=== PATIENT | female | born 1945 | race Caucasian/White ===

== ENCOUNTER → 2017-02-23 | Outpatient (CLI) | payer OTHER | LOC: BMCIMAGING 16:25 | PROVIDERS: ATTEND Internal Medicine | DX: R50.9 Fever, unspecified (principal); R53.81 Other malaise; Z96.659 Presence of unspecified artificial knee joint ==

== ENCOUNTER 2018-05-30 11:24 | Emergency (ER) | payer OTHER ==
[2018-05-30 11:47] VITALS: BP 158/80
--- NOTE | 2018-05-30 12:30 | EDPHY ---
H & P Time Seen by Provider: 05/30/18 11:47 HPI/ROS: CHIEF COMPLAINT: Right ankle pain HISTORY OF PRESENT ILLNESS: Patient states she was trying to put on a pair of boots yesterday at home. She was standing up and trying to put her foot in to the boot when the heel of the boot rolled causing her to fall. She felt pain to the right ankle but denies other injuries. She did continue to go about her day and was able to walk on the ankle yesterday. She presents today with swelling and pain to the ankle. States able to but difficult to walk on it. No other injuries. REVIEW OF SYSTEMS: Negative except per HPI. General Appearance: Alert, no distress. Eyes: Pupils equal and round no icterus Respiratory: No respiratory distress Neurological: Awake, alert, no focal deficits. Skin: Warm and dry, no rashes. Musculoskeletal: Neck is supple nontender. Extremities are symmetrical, right ankle with swelling and tenderness to the lateral malleolus. Distal intact. No edema. Psychiatric: Patient is oriented X 3, there is no agitation. Medical/surgical history: Hypertension, insulin-dependent diabetes. Social history: Nonsmoker. Constitutional: Initial Vital Signs Temperature (C) 36.7 C 05/30/18 11:43 Heart Rate 63 05/30/18 11:43 Respiratory Rate 16 05/30/18 11:43 Blood Pressure 158/80 H 05/30/18 11:43 O2 Sat (%) 97 05/30/18 11:43 O2 Delivery Mode Room Air Allergies/Adverse Reactions: No Known Allergies Allergy (Verified 05/30/18 11:56) Home Medications: Medication Instructions Recorded FLUoxetine [Prozac] 40 mg PO DAILY 07/21/13 Losartan/Hydrochlorothiazide 1 each PO DAILY 07/21/13 [Hyzaar 100-25 Tablet] Metoprolol Tartrate [Lopressor 25 25 mg PO DAILY 07/21/13 mg (RX)] Omeprazole [Prilosec 20 mg] 20 mg PO DAILY 07/21/13 Insulin Glargine,Hum.rec.anlog 05/30/18 [Edna Harper] Medical Decision Making - Diagnostics Imaging Results: Imaging Impressions Ankle X-Ray 05/30/18 11:48 Impression: Ankle sprain. No fracture. Imaging: I viewed and interpreted images myself Differential Diagnosis: Patient with ankle sprain sustained today born. No evidence of fracture, dislocation, other injury. Placed in a a splint with Elías wrap. Discussed normal healing time and methods to reduce pain and swelling at home. Reviewed follow-up timing and return precautions. Stable for discharge. Departure - Departure Disposition: Home, Routine, Self-Care Clinical Impression: Ankle sprain Qualifiers: Encounter type: initial encounter Involved ligament of ankle: unspecified ligament Laterality: right Qualified Code(s): S93.401A - Sprain of unspecified ligament of right ankle, initial encounter Condition: Good Instructions: Ankle Sprain (ED), Ankle Stirrup Splint (ED) Additional Instructions: Rest, ice, compression with Elías wrap and splint, elevation as much as you can over the next 3-4 days. Try to regain normal range of motion as soon as you are able. Follow up with her primary care or orthopedist in several weeks if improvement is not occurring. Use ibuprofen or Tylenol for pain as discussed. Referrals: Sharda Rene MD [Primary Care Provider] - As per Instructions Jason Ibarra MD [Medical Doctor] - As per Instructions
== END 2018-05-30 12:36 | disposition home or self-care (01) ==
LOC: CED 11:24
DX: S93.401A Sprain of unspecified ligament of right ankle, initial encounter (principal); E11.9 Type 2 diabetes mellitus without complications; I10 Essential (primary) hypertension; W19.XXXA Unspecified fall, initial encounter; Y92.9 Unspecified place or not applicable; Y99.9 Unspecified external cause status; Y93.89 Activity, other specified
CPT/HCPCS: 73610; 99283; L4350

== ENCOUNTER → 2018-05-30 | Outpatient (CLI) | payer OTHER ==
[~2018-05-30] MED LIST: IOPAMIDOL (ISOVUE-370) 150 ML BTL IV ONE
== END ==
LOC: CIMAGING 10:26
PROVIDERS: ATTEND Urology
DX: R31.9 Hematuria, unspecified (principal); N28.1 Cyst of kidney, acquired; R91.8 Other nonspecific abnormal finding of lung field; Z87.440 Personal history of urinary (tract) infections
CPT/HCPCS: 74178; Q9967; 82565-PO